=== PATIENT | male | born 1950 | race Caucasian/White ===

== ENCOUNTER 2024-01-07 11:34 | Day surgery (SDC) | payer MEDICARE, OTHER ==
[2024-01-07] MEDS: Polymyxin B/Trimethoprim 10 ML Bottle EYERT SCH (11:04)
[2024-01-07] MEDS: Brimonidine 0.2% Ophth Soln 5 ML Bottle EYERT SCH (11:13)
[2024-01-07] MEDS: Phenylephrine 2.5% Ophth Soln 2 ML Bot EYERT SCH (11:20)
[2024-01-07] MEDS: Tropicamide 1% Ophth Soln 3 ML Bottle EYERT SCH (11:22)
[2024-01-07] MEDS: Tetracaine HCl/PF 0.5% 4 ML Bottle EYEBOTH SCH (12:14)
[2024-01-07] MEDS: Lidocaine 1% PF 2 ML SDV INJECT SCH (12:37)
[2024-01-07] MEDS: Pilocarpine 4% Ophth Soln 15 ML Bot EYERT SCH (12:47)
[2024-01-07] MEDS: Cefuroxime 10 MG/ML SYRINGE EYERT SCH (12:47)
== END 2024-01-07 13:00 | disposition home or self-care (01) ==
LOC: JD.SDS 11:34
PROVIDERS: ATTEND Ophthalmology
DX: H25.813 Combined forms of age-related cataract, bilateral (principal); I10 Essential (primary) hypertension; E78.00 Pure hypercholesterolemia, unspecified; F17.200 Nicotine dependence, unspecified, uncomplicated
CPT/HCPCS: 66984; J0697; A9270-GY; J3490

== ENCOUNTER 2024-02-11 12:35 | Day surgery (SDC) | payer MEDICARE, OTHER ==
[2024-02-11] MEDS: Polymyxin B/Trimethoprim 10 ML Bottle EYELF SCH (13:04)
[2024-02-11] MEDS: Brimonidine 0.2% Ophth Soln 5 ML Bottle EYELF SCH (13:11)
[2024-02-11] MEDS: Phenylephrine 2.5% Ophth Soln 2 ML Bot EYELF SCH (13:14)
[2024-02-11] MEDS: Tropicamide 1% Ophth Soln 3 ML Bottle EYELF SCH (13:19)
[2024-02-11] MEDS: Tetracaine HCl/PF 0.5% 4 ML Bottle EYEBOTH SCH (14:17)
[2024-02-11] MEDS: Lidocaine 1% PF 2 ML SDV INJECT SCH (14:34)
[2024-02-11] MEDS: Cefuroxime 10 MG/ML SYRINGE EYELF SCH (14:47)
[2024-02-11] MEDS: Pilocarpine 4% Ophth Soln 15 ML Bot EYELF SCH (14:48)
== END 2024-02-11 15:00 | disposition home or self-care (01) ==
LOC: JD.SDS 12:35
PROVIDERS: ATTEND Ophthalmology
DX: H25.812 Combined forms of age-related cataract, left eye (principal); I10 Essential (primary) hypertension; E78.00 Pure hypercholesterolemia, unspecified; Z79.899 Other long term (current) drug therapy
CPT/HCPCS: 66984; A9270; J0697; J3490; V2632